=== PATIENT | female | born 1965 | race Caucasian/White ===

== ENCOUNTER 2016-12-04 21:30 | Emergency (ER) | payer OTHER ==
[~2016-12-04] VITALS: Ht 167.6 cm; Wt 54.4 kg
[~2016-12-04 21:30] MED LIST: EST.625T PO; IBP600T1 PO
[2016-12-04 21:47] LABS: BILIRUBIN,URINE NEGATIVE (NEGATIVE); KETONES,URINE NEGATIVE (NEGATIVE); LEUKOCYTE ESTERASE ,URINE 3+ (NEGATIVE); NITRITE,URINE POSITIVE (NEGATIVE); PH,URINE 7 (5-9); PROTEIN,URINE 2+ (NEGATIVE); UROBILINOGEN,URINE NORMAL (NORMAL)
[2016-12-04 21:58] LABS: SQUAMOUS EPITHELIAL CELL,UR 0-2 /HPF
[2016-12-04] MEDS ORDERED: cefTRIAXone INJECTION 1,000 MG in NS (IVPB) 50 ML IV ONE (22:45)
[2016-12-04 22:50] LABS: BASOPHILS # (AUTO) 0.1 10^3/uL (0.0-0.1); BASOPHILS % (AUTO) 1 % (0-10); EOSINOPHILS # (AUTO) 0.1 10^3/uL (0.0-0.3); EOSINOPHILS % (AUTO) 1 % (0-10); LYMPHOCYTES # (AUTO) 3.3 X 10^3 (1.0-4.0); LYMPHOCYTES % (AUTO) 32 % (12-44); MEAN CORPUSCULAR HEMOGLOBIN 31 PG (25-34); MEAN CORPUSCULAR HGB CONC 33 G/DL (32-36); MEAN CORPUSCULAR VOLUME 95 FL (80-99); MEAN PLATELET VOLUME 10.7 FL (7.4-10.4); MONOCYTES # (AUTO) 0.8 X 10^3 (0.0-1.0); MONOCYTES % (AUTO) 8 % (0-12); NEUTROPHILS # (AUTO) 6.1 X 10^3 (1.8-7.8); NEUTROPHILS % (AUTO) 58 % (42-75); PLATELET COUNT 223 10^3/uL (130-400); RED BLOOD COUNT 4.12 10^6/uL (4.35-5.85); RED CELL DISTRIBUTION WIDTH 12.5 % (10.0-14.5); WHITE BLOOD COUNT 10.4 10^3/uL (4.3-11.0)
[2016-12-04 23:08] LABS: ALANINE AMINOTRANSFERASE 14 U/L (0-55); ALBUMIN 3.9 G/DL (3.2-4.5); ANION GAP 11 MMOL/L (5-14); ASPARTATE AMINO TRANSFERASE 21 U/L (5-34); BILIRUBIN,TOTAL 0.2 MG/DL (0.1-1.0); BLOOD UREA NITROGEN 15 MG/DL (7-18); BUN/CREATININE RATIO 15; CALCIUM 9.5 MG/DL (8.5-10.1); CARBON DIOXIDE 25 MMOL/L (21-32); CHLORIDE 104 MMOL/L (98-107); CREATININE SERUM 0.97 MG/DL (0.60-1.30); GFR ESTIMATED > 60; GLUCOSE 96 MG/DL (70-105); POTASSIUM 3.8 MMOL/L (3.6-5.0); SODIUM 140 MMOL/L (135-145); TOTAL PROTEIN 7.2 G/DL (6.4-8.2)
[2016-12-05] MEDS ORDERED: PHEN-639 PO (00:48)
[2016-12-05] MEDS ORDERED: CEPH-507 PO (00:48)
--- NOTE | 2016-12-05 00:49 | ED GU-Female ---
General Chief Complaint: -Female Stated Complaint: BLOOD IN URINE/LOWER STOMACH PAIN Nursing Triage Note: PT TO ED 6 W/ C/O HEMATURIA, PAIN, BURNING ET URGENCY ONSET THIS AM, WORSE THROUGHOUT THE DAY. DOES REPORT SIMILAR COMPLAINT AFTER RUNNING THE [employer] HALF MARATHON ET WAS EVALUATED AT THAT TIME BUT DENIES BEING TREATED FOR UTI. NO OTHER C/O VOICED Nursing Sepsis Screen: No Definite Risk Source: patient Exam Limitations: no limitations History of Present Illness Time seen by provider: 21:34 Initial Comments This 51-year-old woman presents to the emergency room with complaints of suprapubic pain and gross hematuria. Symptoms started within the past 24 hours. She reports a lesser episode of hematuria about 3 weeks ago after running a marathon. She has had a couple episodes of microscopic hematuria in the past several months. She has been treated for urinary tract infection in the past although UAs were not strongly indicative of infection per her report. Patient denies any fever or other symptoms. She has a remote history of ovarian cancer. Dr. Bartlett is her primary care provider. Allergies and Home Medications Allergies Coded Allergies: No Known Drug Allergies (Unverified , 08/07/11) Home Medications Cephalexin 500 Mg Capsule, 500 MG PO QID, #40 Prescribed by: NIVIA MIGUEL on 12/05/16 0048 Estrogens,Conjugated 0.625 Mg Tablet, 1 TAB PO DAILY, #0 (Reported) Phenazopyridine HCl 100 Mg Tablet, 100 MG PO TID, #10 Prescribed by: NIVIA MIGUEL on 12/05/168 Constitutional: no symptoms reported EENTM: no symptoms reported Respiratory: no symptoms reported Cardiovascular: no symptoms reported Gastrointestinal: no symptoms reported Genitourinary: see HPI : No Musculoskeletal: no symptoms reported Skin: no symptoms reported Psychiatric/Neurological: No Symptoms Reported Endocrine: No Symptoms Reported Past Czjbazv-Fewgme-Esqcsh Hx Patient Social History Recent Foreign Travel: No Contact w/Someone Who Travel: No Recent Infectious Disease Expo: No Recent Hopitalizations: Yes Seasonal Allergies Seasonal Allergies: No Surgeries HX Surgeries: Yes (hysterectomy & sx for bowel obstruction) Surgeries: Abdominal, Hysterectomy Respiratory Hx Respiratory Disorders: No Cardiovascular Hx Cardiac Disorders: No Neurological Hx Neurological Disorders: No Reproductive System : No Hx Reproductive Disorders: Yes (ovarian ca & hysterectomy at 18 yrs old) Genitourinary Hx Genitourinary Disorders: Yes (hematuria) Gastrointestinal Hx Gastrointestinal Disorders: Yes Gastrointestinal Disorders: Obstructive Bowel, Diverticulosis Musculoskeletal Hx Musculoskeletal Disorders: No Endocrine Hx Endocrine Disorders: No HEENT HX ENT Disorders: No Cancer Hx Cancer: Yes Cancer: Ovarian Psychosocial Hx Psychiatric Problems: No Integumentary HX Skin/Integumentary Disorder: No Blood Transfusions Hx Blood Disorders: No Physical Exam Vital Signs Vital Sign - Last 12Hours 12/04/16 21:33 Temp 97.9 Pulse 63 Resp 16 B/P (MAP) 134/93 Pulse Ox 99 O2 Delivery Room Air Capillary Refill : Less Than 3 Seconds General Appearance: WD/WN, no apparent distress HEENT: PERRL/EOMI, normal ENT inspection, pharynx normal Neck: normal inspection Cardiovascular: regular rate, rhythm, no edema, no murmur Respiratory: lungs clear, normal breath sounds, no respiratory distress, no accessory muscle use Gastrointestinal: normal bowel sounds, soft, tenderness (suprapubic tenderness) Back: normal inspection, no CVA tenderness Extremities: normal inspection, no pedal edema Neurologic/Psychiatric: 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, no motor/sensory deficits, alert, normal mood/affect, oriented x 3 Skin: normal color, warm/dry Progress/Results/Core Measures Results/Orders Lab Results Laboratory Tests Test 12/04/16 21:38 12/04/16 22:43 Range/Units Urine Color OTHER H Urine Clarity SLIGHTLY CLOUDY Urine pH 7 5-9 Urine Specific [place] 1.010 L 1.016-1.022 Urine Protein 2+ H NEGATIVE Urine Glucose (UA) NEGATIVE NEGATIVE Urine Ketones NEGATIVE NEGATIVE Urine Nitrite POSITIVE H NEGATIVE Urine Bilirubin NEGATIVE NEGATIVE Urine Urobilinogen NORMAL NORMAL MG/DL Urine Leukocyte Esterase 3+ H NEGATIVE Urine RBC (Auto) 5+ H NEGATIVE Urine RBC TNTC H /HPF Urine WBC 10-25 H /HPF Urine Squamous Epithelial Cells 0-2 /HPF Urine Crystals NONE /LPF Urine Bacteria FEW H /HPF Urine Casts NONE /LPF Urine Mucus NEGATIVE /LPF Urine Culture Indicated YES White Blood Count 10.4 4.3-11.0 10^3/uL Red Blood Count 4.12 L 4.35-5.85 10^6/uL Hemoglobin 12.8 11.5-16.0 G/DL Hematocrit 39 35-52 % Mean Corpuscular Volume 95 80-99 FL Mean Corpuscular Hemoglobin 31 25-34 PG Mean Corpuscular Hemoglobin Concent 33 32-36 G/DL Red Cell Distribution Width 12.5 10.0-14.5 % Platelet Count 223 130-400 10^3/uL Mean Platelet Volume 10.7 H 7.4-10.4 FL Neutrophils (%) (Auto) 58 42-75 % Lymphocytes (%) (Auto) 32 12-44 % Monocytes (%) (Auto) 8 0-12 % Eosinophils (%) (Auto) 1 0-10 % Basophils (%) (Auto) 1 0-10 % Neutrophils # (Auto) 6.1 1.8-7.8 X 10^3 Lymphocytes # (Auto) 3.3 1.0-4.0 X 10^3 Monocytes # (Auto) 0.8 0.0-1.0 X 10^3 Eosinophils # (Auto) 0.1 0.0-0.3 10^3/uL Basophils # (Auto) 0.1 0.0-0.1 10^3/uL Sodium Level 140 135-145 MMOL/L Potassium Level 3.8 3.6-5.0 MMOL/L Chloride Level 104 98-107 MMOL/L Carbon Dioxide Level 25 21-32 MMOL/L Anion Gap 11 5-14 MMOL/L Blood Urea Nitrogen 15 7-18 MG/DL Creatinine 0.97 0.60-1.30 MG/DL Estimat Glomerular Filtration Rate > 60 BUN/Creatinine Ratio 15 Glucose Level 96 70-105 MG/DL Calcium Level 9.5 8.5-10.1 MG/DL Total Bilirubin 0.2 0.1-1.0 MG/DL Aspartate Amino Transf (AST/SGOT) 21 5-34 U/L Alanine Aminotransferase (ALT/SGPT) 14 0-55 U/L Alkaline Phosphatase 71 40-136 U/L Total Protein 7.2 6.4-8.2 G/DL Albumin 3.9 3.2-4.5 G/DL My Orders Orders - NIVIA MANTILLA MD Ua Culture If Indicated (12/04/16 21:33) Urine Culture (12/04/16 21:38) Cbc With Automated Diff (12/04/16 22:41) Comprehensive Metabolic Panel (12/04/16 22:41) Saline Lock/Iv-Start (12/04/16 22:41) Ceftriaxone Injection (Rocephin Injectio (12/04/16 22:45) Ct Abd/Pelvis Wo(Kidney Stone) (12/05/16 00:01) Phenazopyridine Tablet (Pyridium Tablet) (12/05/16 01:00) Medications Given in ED Current Medications Medications Dose Ordered Sig/Jose G Route Start Time Stop Time Status Last Admin Dose Admin Ceftriaxone Sodium 1000 mg/ Sodium Chloride 50 ml @ 100 mls/hr ONCE ONCE IV 12/04/16 22:45 12/04/16 23:14 DC 12/04/16 22:59 100 MLS/HR Phenazopyridine HCl 100 mg ONCE ONCE PO 12/05/16 01:00 12/05/16 01:00 DC 12/05/16 00:57 100 MG Vital Signs/I&O Vital Sign - Last 12Hours 12/04/16 12/05/16 21:33 01:04 Temp 97.9 98.1 Pulse 63 60 Resp 16 16 B/P (MAP) 134/93 Pulse Ox 99 100 O2 Delivery Room Air Intake and Output 12/05/16 00:00 Intake Total 50 ml Balance 50 ml Blood Pressure Mean: 107 Progress Note : Progress Note Patient was found to have significant hematuria and evidence of urinary tract infection. Rocephin was administered. In the context of recurrent episodes of hematuria, CT imaging was felt appropriate. Patient has a contrast dye allergy. Therefore, images were obtained without contrast. Case was reviewed with Dr. Corado. He recommends cystoscopy for direct visualization to rule out bladder//ureteral neoplasm. She is to contact his office tomorrow. Diagnostic Imaging Diagonstic Imaging: CT Plain Films/CT/US/NM/MRI: abdomen, pelvis Comments CT abdomen and pelvis viewed by me and Stat rad report reviewed. The right distal ureter has an area of increased density concerning for a lesion and/or hemorrhage or clot. There is associated marked hydronephrosis. No ureteral calculi are identified. Small left nephrolithiasis. Departure Impression Impression: Primary Impression: Hematuria Additional Impressions: Ureteral obstruction, right Urinary tract infection Qualified Codes: N39.0 - Urinary tract infection, site not specified; R31.9 - Hematuria, unspecified Disposition: 01 HOME, SELF-CARE Condition: Stable Departure-Patient Inst. Decision time for Depature: 00:45 Referrals: WENDY BARTLETT MD (PCP/Family) Primary Care Physician NOAH CORADO MD Patient Instructions: Blood in the Urine (Hematuria) in Adults, Urinary Tract Infections in Adults Add. Discharge Instructions: Contact Dr. Corado (or urologist of your choice) and your primary care provider to get follow-up appointments as soon as possible. Return to the emergency room if symptoms worsen. Complete your antibiotics as prescribed. Avoid aspirin or NSAID medications such as ibuprofen or naproxen as they may worsen bleeding. You may take Tylenol (acetaminophen) and perineum as prescribed for pain. Follow-up on your urine culture results in 48 hours to ensure the antibiotic you're on is appropriate. All discharge instructions reviewed with patient and/or family. Voiced understanding. Scripts Phenazopyridine HCl (Pyridium) 100 Mg Tablet 100 MG PO TID, #10 TAB Prov: NIVIA MANTILLA MD 12/05/16 Cephalexin (Keflex) 500 Mg Capsule 500 MG PO QID, #40 CAP Prov: NIVIA MANTILLA MD 12/05/16 Copy Copies To 1: WENDY BARTLETT MD Copies To 2: NOAH CORADO MD, JOSHUA T MD Dec 05, 2016 00:49
[2016-12-05] MEDS ORDERED: PHENAZOPYRIDINE 100 MG (PYRIDIUM) TABLET PO ONE (01:00)
[2016-12-05 01:04] VITALS: BP 132/81
--- NOTE | 2016-12-05 07:10 | Diagnostic Imaging Report ---
PROCEDURE: CT urinary tract, rule out kidney stone. TECHNIQUE: Multiple contiguous axial images were obtained through the abdomen and pelvis without the use of intravenous contrast. INDICATION: Gross hematuria. There are no previous CT examinations available for comparison. There is marked dilatation of the right renal pelvis and the right ureter. There is no sign of an obstructive calculus in the distal right ureter. However there does seem to be dense material within the distal right ureter. This could be secondary to the presence of hemorrhage/hematoma formation and this may alone account for the dilated appearance of the right collecting system. The possibility that there is an underlying neoplastic mass in this area should still be considered. There are a few minute nonobstructive calculi within the left kidney. There is no sign of obstruction of left collecting system. There is no evidence for a solid mass involving either kidney. The urinary bladder is grossly unremarkable. No other acute abnormality of the abdomen or pelvis is identified. There is no pelvic mass or free fluid collection evident. The uterus is surgically absent. There may be a few diverticula in the sigmoid colon but there is no sign of acute diverticulitis. The appendix was not well-visualized but there are no indirect signs of acute appendicitis. The liver, spleen, pancreas, adrenals, gallbladder, aorta and inferior vena cava are unremarkable for an acute abnormality. The stomach is filled with fluid and particulate matter and difficult to assess. The lung bases are clear. The bone windows show no sign of a fracture or of a destructive lesion. IMPRESSION: 1. There is obstruction of the right collecting system but there is no sign of an obstructive calculus. However the area of increased density within the distal ureter may be secondary to hemorrhage/hematoma formation or even to an underlying neoplastic process. Cystoscopy would be recommended for further evaluation. 2. There are nonobstructive calculi in the left kidney but there is no sign of obstruction of left collecting system. 3. There is no acute abnormality of the abdomen or pelvis noted otherwise. Dictated by: Dictated on workstation # [id number]
[2016-12-06] MEDS ORDERED: HYDR-3874 PO (12:27)
[2016-12-06] MEDS ORDERED: NITR-65 PO (12:27)
[2016-12-06] MEDS ORDERED: HYOS0.1281 PO (12:27)
== END 2016-12-05 01:00 | disposition home or self-care (01) ==
LOC: EDUNIT# 21:30 → ER 21:32
DX: R31.9 Hematuria, unspecified (principal); N39.0 Urinary tract infection, site not specified; N13.5 Crossing vessel and stricture of ureter without hydronephrosis; Z90.710 Acquired absence of both cervix and uterus; Z87.19 Personal history of other diseases of the digestive system; Z85.43 Personal history of malignant neoplasm of ovary
CPT/HCPCS: 36415; 74176; 80053; 81000; 85025; 87088; 87186

== ENCOUNTER 2016-12-06 06:32 | Day surgery (SDC) | payer OTHER ==
[~2016-12-06] VITALS: Ht 167.6 cm; Wt 54.7 kg
[~2016-12-06 06:32] MED LIST changes: +CEPH-507 PO; +PHEN-639 PO
[2016-12-06 07:00] VITALS: BP 136/86
--- NOTE | 2016-12-06 07:18 | Progress Note-Pre Operative ---
Pre-Operative Progress Note H&P Reviewed The H&P was reviewed, patient examined and no changes noted. Date Seen by Provider: Dec 06, 2016 Time Seen by Provider: 07:17 Date H&P Reviewed: Dec 06, 2016 Time H&P Reviewed: 07:17 Pre-Operative Diagnosis: GROSS HEMATURIA, RT URETERAL OBSTRUCTION, AND MASS DISTAL RT URETER NOAH CORADO MD Dec 06, 2016 7:18 am
[2016-12-06] MEDS ORDERED: cefTRIAXone 1 GM/NS 50 ML IVPB IV ONE ×2 (07:45)
[2016-12-06] MEDS: LACTATED RINGERS 1,000 ML IV PRN ×2 (08:10→09:55)
[2016-12-06] MEDS ORDERED: SEVOFLURANE (ULTANE) 15 ML INHAL SOLN ONE (09:08)
[2016-12-06] MEDS ORDERED: LACTATED RINGERS 1,000 ML IV ONE ×2 (09:08→10:06)
[2016-12-06] MEDS ORDERED: proPOfol 200 MG/20 ML (DIPRIVAN) VIAL IV ONE (09:08)
[2016-12-06] MEDS ORDERED: DEXAMETHASONE PF 10 MG/ML (DECADRON) VIAL ONE (09:08)
[2016-12-06] MEDS ORDERED: MIDAZOLAM 2 MG/2 ML (VERSED) VIAL ONE (09:08)
[2016-12-06] MEDS ORDERED: fentaNYL INJECTION 100 MCG/2 ML AMP ONE (09:08)
[2016-12-06] MEDS ORDERED: ROCURONIUM 50 MG/5 ML (ZEMURON) VIAL IV ONE (09:08)
[2016-12-06] MEDS ORDERED: ONDANSETRON 4 MG/2 ML (SDV) Z0FRAN ONE (09:08)
[2016-12-06] MEDS ORDERED: LIDOCAINE PF 2% 5 ML (XYLOCAINE) VIAL ONE (09:08)
[2016-12-06] MEDS ORDERED: NEOSTIGMINE (BLOXIVERZ ) 1 MG/1ML 10 ML VIAL ONE (09:48)
[2016-12-06] MEDS ORDERED: GLYCOPYRROLATE 0.2 MG/ML (ROBINUL) 2 ML VIAL ONE (09:48)
--- NOTE | 2016-12-06 10:23 | Progress Note-Post Operative ---
Post-Operative Progess Note Surgeon (s)/Grade And Center Marker (s) Surgeon NOAH CORADO MD Grade And Center Marker: N/A Pre-Operative Diagnosis GROSS HEMATURIA, RT URETERAL OBSTRUCTION, AND MASS DISTAL RT URETER Post-Operative Diagnosis SAME, DUS, CYSTITIS Procedure & Operative Findings Date of Procedure 12/06/16 Procedure Performed/Findings CYSTO, RT URETEROSCOPY, CYTOLOGY, BIOPSY RT DISTAL URETERAL MASS, AND UD FINDINGS: DIFFUSE CYSTITIS, DUS, RT DISTAL URETERAL MASS Anesthesia Type GENERAL Estimated Blood Loss Estimated blood loss (mL): NEGLIGIBLE Specimens/Packing Specimens Removed 1. URINE CYTOLOGY RT URETER 2. 4 BIOPSIES RT DISTAL URETER NOAH CORADO MD Dec 06, 2016 10:23 am
--- NOTE | 2016-12-06 10:25 | Discharge Inst-Urology ---
Discharge Inst-Urology Discharge Medications New, Converted, or Re-newed RX: RX on Chart Patient Instructions/Follow Up Plan Please make appointment to been seen in office in 2 weeks. Stop Keflex Increase oral fluids for 48 hours and then as needed. Diet and Activity as tolerated. If questions or concerns contact your physician Or seek help at emergency department. NOAH CORADO MD Dec 06, 2016 10:25 am
[2016-12-06] MEDS ORDERED: ONDANSETRON 4 MG/2 ML (SDV) Z0FRAN IVP PRN (10:30)
[2016-12-06] MEDS: morphine INJ 10 MG/ML 1ML (SYR OR VIAL) IVP PRN ×2 (10:35→10:42)
[2016-12-06 11:05] VITALS: BP 149/92
[2016-12-06] MEDS ORDERED: HYDROcodone/APAP 5 MG/325 MG (LORTAB) TAB PO PRN (11:30)
[2016-12-06 11:35] VITALS: BP 140/85
[2016-12-06 12:15] VITALS: BP 124/76
--- NOTE | 2016-12-06 12:21 | OPERATIVE REPORT ---
DATE OF SERVICE: 12/06/2016 PREOPERATIVE DIAGNOSES: Gross hematuria, right urethral obstruction and mass in the distal right ureter. POSTOPERATIVE DIAGNOSES: Gross hematuria, right urethral obstruction, mass in the distal right ureter, distal urethral stenosis sand cystitis. PROCEDURES PERFORMED: Cystoscopy, right ureteroscopy, cytology, biopsy of right distal urethral mass and urethral dilatation. SURGEON: Casimiro Corado MD ANESTHESIA: General. COMPLICATIONS: None. PROCEDURE IN DETAIL: Under satisfactory general anesthesia, the patient in the lithotomy position, genitalia were prepped and draped in the usual sterile fashion. Urethral stenosis was noted and dilated from 20-Maltese to 26-Maltese easily. Cystoscope was introduced in the bladder. Examination of the bladder with both lenses revealed diffuse cystitis. No foreign body, bladder tumor or stone visualized. Clear efflux on the left side and sluggish bloody efflux on the right side. Using the foreoblique lens, I dilated the right ureteral orifice and intramural portion to accommodate a 6.9-Maltese semi-rigid ureteroscope. I visualized a papillary mass lesion starting in the intramural portion of the ureter and proximally for at least 1 cm fluoroscopically at the level of the ischial spine. I went ahead and first obtained cytology and sent the fluid to pathology. Then, I went ahead and obtained 4 biopsies, easily obtained, superficially looking and papillary type and sent them to pathology. I did not want to perform any retrograde, both because the patient says she has allergy to IVP contrast and also not to spread any tumor proximally. There was mild ooze from the right ureter, the bladder was evacuated and the cystoscope was removed. The patient tolerated the procedure and anesthesia well and was sent to recovery room in stable condition. PLAN: Will refer her to [facility]. My impression would be she would need a right distal ureterectomy and reimplantation possibly tailoring, of course pending the pathology and cytology reports, unless it can be done endoscopically. Will leave that up to the [facility] specialists. This was fully explained to the and the father and later on to the patient. Job ID: [id number] DocumentID: [id number] Dictated Date: 12/06/2016 10:29:11 Shoe Caser Date: 12/06/2016 12:20:44 Dictated By: CASIMIRO CORADO MD [facility], [place]
[2016-12-06] MEDS ORDERED: NITR-65 PO (12:27)
[2016-12-06] MEDS ORDERED: HYDR-3874 PO (12:27)
[2016-12-06] MEDS ORDERED: HYOS0.1281 PO (12:27)
[2016-12-06 12:40] VITALS: BP 124/76
== END 2016-12-06 12:40 | disposition home or self-care (01) ==
LOC: SDC 06:32
PROVIDERS: ATTEND Urology
DX: C67.9 Malignant neoplasm of bladder, unspecified (principal); N35.9 Urethral stricture, unspecified; R31.0 Gross hematuria; N30.91 Cystitis, unspecified with hematuria; Z11.2 Encounter for screening for other bacterial diseases
CPT/HCPCS: 87081

== ENCOUNTER → 2017-02-07 | Outpatient (CLI) | payer OTHER ==
[~2017-02-07] MED LIST changes: +HYDR-3874 PO; +HYOS0.1281 PO; +IOHEXOL 350 MG/ML 100 ML (OMNIPAQUE 350) VIAL IV ONE; +NITR-65 PO
--- NOTE | 2017-02-07 11:39 | Diagnostic Imaging Report ---
PROCEDURE: CT pelvis without intravenous and with intravesical contrast. TECHNIQUE: Multiple contiguous axial images were obtained through the pelvis without the use of intravenous and with intravesical contrast administered via a Rothman catheter. Sagittal and coronal reformations were performed. INDICATION: Postoperative evaluation involving resection of the distal right ureter and probably portion of the urinary bladder. FINDINGS: There is a Rothman catheter in the urinary bladder which is minimally distended prior to contrast administration. There is normal distention of the urinary bladder which appears to be mostly in an intraperitoneal location at this time and from the anterior abdominal wall except for the most inferior portion. There is slight irregularity along the anterior right side aspect of the bladder, probably from postsurgical changes with no definite mass. No evidence of extravasation of contrast outside the bladder. This is similar on post evacuation scan as well. There is no reflux into the left ureter. There is a small amount of free fluid in the pelvis seen. No significantly enlarged lymph nodes in the pelvis are identified. There is mild degenerative sclerotic change at the SI joints seen. Also, mild degenerative sclerotic changes at the lower facet joints are noted. IMPRESSION: Irregularity along the anterior right side aspect of the urinary bladder, probably related to postoperative changes with no definite mass identified. No extravasation of contrast outside the bladder to suggest a tear. Dictated by: Dictated on workstation # [id number]
== END ==
LOC: RAD 08:57
PROVIDERS: ATTEND Urology
DX: Z93.50 Unspecified cystostomy status (principal)
CPT/HCPCS: 72192

== ENCOUNTER → 2017-03-08 | Outpatient (CLI) | payer OTHER ==
[~2017-03-08] MED LIST changes: -IOHEXOL 350 MG/ML 100 ML (OMNIPAQUE 350) VIAL IV ONE
--- NOTE | 2017-03-09 09:31 | Diagnostic Imaging Report ---
Bilateral screening mammogram. This study was compared to prior exam of 02/28/2016; 02/24/2015; and 02/23/2014. At this time there are no current complaints. The current study was also evaluated with a Computer Aided Detection (CAD) system. FINDINGS: The fibroglandular tissue in both breasts is dense. This does limit the sensitivity of this exam. Overall, there does not appear to have been any significant change when compared to the prior study. No primary or secondary sign of malignancy is noted. IMPRESSION: There is no radiographic evidence for malignancy. ACR BI-RADS Category 1: Negative. Result letter will be mailed to the patient. Note: At least 10% of breast cancer is not imaged by mammography. Dictated by: Dictated on workstation # [id number]
== END ==
LOC: RAD 07:19
PROVIDERS: ATTEND Nurse Practitioner Family
DX: Z12.31 Encounter for screening mammogram for malignant neoplasm of breast (principal)
CPT/HCPCS: 77067

== ENCOUNTER → 2018-03-26 | Outpatient (CLI) | payer BC, OTHER ==
[~2018-03-26] MED LIST changes: +HYDR-3870 PO; -HYDR-3874 PO
--- NOTE | 2018-03-26 13:04 | Diagnostic Imaging Report ---
INDICATION: Screening. TECHNIQUE: The current study was also evaluated with a Computer Aided Detection (CAD) system. 3D tomosynthesis was also performed and reviewed. COMPARISON: 03/08/2017 back through 02/19/2012. FINDINGS: The fibroglandular tissue is heterogeneously dense bilaterally. There are a few benign type calcifications. There is no dominant mass, spiculated lesion, or suspicious calcification identified. The skin, nipples, and axillae are unremarkable. IMPRESSION: Benign findings. ACR BI-RADS Category 2: Benign findings. Result letter will be mailed to the patient. Note: At least 10% of breast cancer is not imaged by mammography. Dictated by: Dictated on workstation # [id number]
== END ==
LOC: RAD 07:17
PROVIDERS: ATTEND Nurse Practitioner Family
DX: Z12.31 Encounter for screening mammogram for malignant neoplasm of breast (principal)
CPT/HCPCS: 77067

== ENCOUNTER → 2019-03-28 | Outpatient (CLI) | payer BC ==
--- NOTE | 2019-03-28 09:16 | Diagnostic Imaging Report ---
INDICATION: Routine screening. COMPARISON: 03/26/2018 and 03/08/2017. TECHNIQUE: 2D and 3D bilateral screening mammography was performed with CAD. FINDINGS: Both breasts remain heterogeneously dense, limiting the sensitivity of mammography. The parenchymal pattern is stable. No mass or malignant appearing microcalcifications are seen. The axillae are unremarkable. IMPRESSION: No mammographic features suspicious for malignancy are identified. ACR BI-RADS Category 1: Negative. Result letter will be mailed to the patient. Note: At least 10% of breast cancer is not imaged by mammography. Dictated by: Dictated on workstation # [id number]
== END ==
LOC: RAD 07:19
PROVIDERS: ATTEND Nurse Practitioner Family
DX: Z12.31 Encounter for screening mammogram for malignant neoplasm of breast (principal)
CPT/HCPCS: 77067

== ENCOUNTER 2020-03-09 05:52 | Outpatient (CLI) | payer BC ==
[~2020-03-09] VITALS: Ht 167 cm; Wt 53.6 kg
[2020-03-09] MEDS ORDERED: ESTR0.62 PO (10:40)
== END 2020-03-09 10:44 ==
LOC: PREOP 05:52
PROVIDERS: ATTEND Internal Medicine
DX: Z01.818 Encounter for other preprocedural examination (principal)

== ENCOUNTER 2020-03-12 07:04 | Day surgery (SDC) | payer BC ==
--- NOTE | 2020-03-05 07:18 | HISTORY AND PHYSICAL ---
DATE OF SERVICE: COLONOSCOPY HISTORY AND PHYSICAL HISTORY OF PRESENT ILLNESS: The patient is a 54-year-old white female referred for screening colonoscopy. She is deemed to be of higher than average risk as she has a past history of ovarian cancer. 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 At that time, she underwent oophorectomy and total abdominal hysterectomy followed by radiation therapy. 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 She apparently had significant obstructive uropathy and she ended up undergoing ureterectomy and right nephrectomy. I performed colonoscopy on her in 2009, at which time she had two hyperplastic polyps removed. She had some tethering of the colon and secondary to this, that was not an easy examination. For this reason, advised Diprivan based anesthesia. She reports no bright red blood per rectum, melena or bowel habit change. She has had no abdominal distention or pain. Energy level has been good. She runs on a regular basis without symptoms. PAST SURGICAL HISTORY: As noted in the HPI. SOCIAL HISTORY: She has no history of past smoking or significant alcohol intake. She is employed. REVIEW OF SYSTEMS: CONSTITUTIONAL: She has had no change in weight, night sweats, chills or fever. CARDIOVASCULAR: She denies dyspnea on exertion, orthopnea, PND, pedal edema, chest pain, syncope or presyncope. PULMONARY: She denies cough, wheezing or shortness of breath. PHYSICAL EXAMINATION: GENERAL: Reveals a white female, fit appearing, in no acute distress. VITAL SIGNS: Blood pressure 120/80, weight 118 and BMI 21. HEENT: Unremarkable. CHEST: Clear to auscultation. CARDIOVASCULAR: Reveals a regular rate and rhythm without murmur, S3 or S4. ABDOMEN: Soft, supple without mass, organomegaly or tenderness. No bruits noted. EXTREMITIES: Reveal no cyanosis, clubbing or edema. 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 Prep instructions with the Suprep kit were given and the questions were answered. We will be doing the patient under Diprivan based anesthesia due to previous examination suggesting adhesions. I thank you for the referral of this pleasant lady. Job ID: [id number] DocumentID: [id number] Dictated Date: 03/03/2020 14:57:28 Residence Life Coordinator Date: 03/03/2020 15:10:30 Dictated By: ANDERS CALI MD
[~2020-03-12] VITALS: Ht 167 cm; Wt 53.6 kg
[~2020-03-12 07:04] MED LIST changes: +ESTR0.62 PO
[2020-03-12] MEDS ORDERED: LACTATED RINGERS 1,000 ML IV STA (07:15)
[2020-03-12] MEDS ORDERED: LIDOCAINE JELLY 2% 6 ML SYRINGE MM PRN (07:15)
[2020-03-12] MEDS ORDERED: PROPOFOL INJECTION 50 ML IV ONE (07:18)
[2020-03-12] MEDS ORDERED: MIDAZOLAM 2 MG/2 ML (VERSED) VIAL ONE (07:18)
[2020-03-12] MEDS ORDERED: LACTATED RINGERS 1,000 ML IV ONE (07:22)
[2020-03-12 07:29] VITALS: BP 109/74
[2020-03-12] MEDS ORDERED: LACTATED RINGERS 1,000 ML IV SCH (07:45)
[2020-03-12 08:35] VITALS: BP 99/58
--- NOTE | 2020-03-12 08:37 | Pre-Op Note & Conscious Sedat ---
Pre-Operative Progress Note H&P Reviewed The H&P was reviewed, patient examined and no changes noted. Date H&P Reviewed: Mar 12, 2020 Time H&P Reviewed: 07:30 Conscious Sedation Pre-Proced ASA Score 2 For ASA 3 and 4: Consider anesthesia and medical clearance. Also, for patients with a history of failed moderate sedation consider anesthesia. Airway Lungs Heart ASA score ASA 1: a normal healthy patient ASA 2: a patient with a mild systemic disease (mid diabetes, controlled hypertension, obesity ASA 3: a patient with a severe systemic disease that limits activity (angina, COPD, prior Myocardial infarction) ASA 4: a patient with an incapacitating disease that is a constant threat to life (CHF, renal failure) ASA 5: a moribund patient not expected to survive 24 hrs. (ruptured aneurysm) ASA 6: a declared brain- patient whose organs are being harvested. For emergent operations, add the letter E after the classification Mallampati Classification Grade 2 Sedation Plan Analgesia, Amnesia, Plan communicated to team members, Discussed options with patient/fam, Discussed risks with patient/fam The patient is an appropriate candidate to undergo the planned procedure, sedation, and anesthesia. The patient immediately re-assessed prior to indication. ANDERS CALI MD Mar 12, 2020 08:37
[2020-03-12 08:40] VITALS: BP 99/58
[2020-03-12 09:00] VITALS: BP 93/63
--- NOTE | 2020-03-12 09:53 | Anesthesia-General Post-Op ---
MAC Patient Condition Mental Status/LOC: Same as Preop Cardiovascular: Satisfactory Nausea/Vomiting: Absent Respiratory: Satisfactory Pain: Controlled Complications: Absent Post Op Complications Complications None Follow Up Care/Instructions Patient Instructions None needed. Anesthesiology Discharge Order Discharge Order Patient is doing well, no complaints, stable vital signs, no apparent adverse anesthesia problems. No complications reported per nursing. DEL MIRANDA CRNA Mar 12, 2020 09:53
[2020-03-12 10:00] VITALS: BP 93/63
--- NOTE | 2020-03-12 20:19 | OPERATIVE REPORT ---
DATE OF SERVICE: COLONOSCOPY SUMMARY INDICATION FOR PROCEDURE: Screening colonoscopy, higher risk due to family history for colon cancer. DESCRIPTION OF PROCEDURE: The patient was placed in the left lateral decubitus position. Prior to any colonoscopy, digital rectal evaluation was performed. Anal sphincter tone was normal and the perianal reflexes intact. The colonoscope was then inserted into the rectum and under direct visualization advanced to cecum. The cecum was identified by identification of ileocecal valve and cecal strap. Photographic documentation was obtained. Careful inspection was made as colonoscope withdrawn. Quality of prep was good. Procedure was done under Diprivan based anesthesia. FINDINGS: There was no evidence for internal or external hemorrhoids and the rectum was unremarkable. One moderate size sigmoid diverticulum was present with some narrowing of the sigmoid colon, likely due to extrinsic adhesions and not likely related to diverticular disease. There was no evidence for acute diverticulitis and the sigmoid colon was otherwise unremarkable. No evidence for stricturing was noted. The descending colon and splenic flexure were unremarkable. Present in the proximal transverse colon was diminutive 3 mm sessile polyp. It was biopsied and ablated and submitted for histopathology after photographing. The hepatic flexure, ascending colon and cecum were unremarkable. ASSESSMENT: One diminutive polyp was removed from the proximal transverse colon. As long as there are no surprise on histopathology reporting, we will advocate repeat surveillance colonoscopy in 5 years. Again noted findings compatible with extrinsic adhesions involving the sigmoid colon with some narrowing, but without obstruction and one moderate sized sigmoid diverticulum was noted without evidence for diverticulitis. Thank you for the referral of this pleasant lady. Job ID: [id number] DocumentID: [id number] Dictated Date: 03/12/2020 10:47:49 Firmware Test Engineer Date: 03/12/2020 20:18:54 Dictated By: ANDERS CALI MD [facility]
== END 2020-03-12 10:00 | disposition home or self-care (01) ==
LOC: ENDO 07:04
PROVIDERS: ATTEND Internal Medicine
DX: Z12.11 Encounter for screening for malignant neoplasm of colon (principal); K63.5 Polyp of colon; K57.30 Diverticulosis of large intestine without perforation or abscess without bleeding; G43.909 Migraine, unspecified, not intractable, without status migrainosus; Z79.899 Other long term (current) drug therapy; Z91.041 Radiographic dye allergy status; Z80.0 Family history of malignant neoplasm of digestive organs
CPT/HCPCS: 88305

== ENCOUNTER → 2020-03-29 | Outpatient (CLI) | payer BC ==
--- NOTE | 2020-03-29 19:12 | Diagnostic Imaging Report ---
EXAM: Digital mammogram, bilateral screening. COMPARISONS: This study was compared to the prior exams of 03/28/2019, 03/26/2018, and 03/08/2017. There are no current complaints. 3d digital tomography Bilateral History: Routine screening Technique: Bilateral 3d digital tomographic views were obtained with [employer] and reviewed on a [employer] workstation. In addition, CAD - computer aided detection was utilized. Comparison: None. Findings: Breast Tissue Density A : The breast tissue is composed of predominantly fatty tissue. There are no suspicious masses, microcalcifications or areas of architectural distortion. Impression: No suspicious findings. BI-RADS Category 1: Negative. Normal interval followup. The patient will receive a letter with the results in the mail. A mammogram does not have 100% sensitivity and therefore a negative imaging study should not delay further work up of a suspicious abnormality. Patient information is entered into the [facility] reminder system using [employer] with a target due date for the next screening mammogram. The patient will receive a reminder. "Our facility is accredited by the [employer] Mammography Program." ACR BI-RADS Category 1: Negative. Result letter will be mailed to the patient. Note: At least 10% of breast cancer is not imaged by mammography. Dictated on workstation # [id number]
== END ==
LOC: RAD 07:15
PROVIDERS: ATTEND Family Medicine
DX: Z12.31 Encounter for screening mammogram for malignant neoplasm of breast (principal)
CPT/HCPCS: 77063; 77067

== ENCOUNTER → 2021-04-08 | Outpatient (CLI) | payer BC ==
--- NOTE | 2021-04-11 11:30 | Diagnostic Imaging Report ---
INDICATION: Routine screening. Comparison is made with prior mammogram from 03/29/2020 and 03/28/2019. 2-D and 3-D bilateral screening mammography was performed with CAD. Both breasts are heterogeneously dense, limiting the sensitivity of mammography. The parenchymal pattern is stable. No mass or malignant-appearing microcalcifications are seen. Axillae are unremarkable. IMPRESSION: BI-RADS Category 1 No mammographic features suspicious for malignancy are identified. ACR BI-RADS Category 1: Negative. Result letter will be mailed to the patient. Note: At least 10% of breast cancer is not imaged by mammography. Dictated by: Dictated on workstation # [id number]
== END ==
LOC: RAD 04-04 07:30
PROVIDERS: ATTEND Family Medicine
DX: Z12.31 Encounter for screening mammogram for malignant neoplasm of breast (principal)
CPT/HCPCS: 77063; 77067

== ENCOUNTER → 2021-11-01 | Outpatient (CLI) | payer BC ==
[~2021-11-01] MED LIST changes: +CATHETER FLUSH 10 ML SYR IV PRN; +HOLD METFORMIN - RECEIVED CONTRAST 20 ML VIAL IV SCH; +IOHEXOL 350 MG/ML 100 ML (OMNIPAQUE 350) VIAL IV ONE; +NS 100 ML (IVPB) BAG IV ONE
[2021-11-01 08:01] LABS: ALBUMIN 4.1 GM/DL (3.2-4.5); POTASSIUM 4.7 MMOL/L (3.6-5.0)
[2021-11-01 08:03] LABS: CALCIUM 9.2 MG/DL (8.5-10.1)
[2021-11-01 08:04] LABS: TOTAL PROTEIN 7.1 GM/DL (6.4-8.2)
[2021-11-01 08:06] LABS: BILIRUBIN,TOTAL 0.5 MG/DL (0.1-1.0)
[2021-11-01 08:07] LABS: CREATININE SERUM 1.05 MG/DL (0.60-1.30)
--- NOTE | 2021-11-01 09:21 | Diagnostic Imaging Report ---
PROCEDURE: CT abdomen and pelvis with contrast. TECHNIQUE: Multiple contiguous axial images were obtained through the abdomen and pelvis after administration of intravenous contrast. Auto Exposure Controls were utilized during the CT exam to meet ALARA standards for radiation dose reduction. All CT scans use one or more of the following dose optimizing techniques: automated exposure control, MA and/or KvP adjustment based on patient size and exam type or iterative reconstruction. INDICATION: Bladder cancer COMPARISON: 02/07/2017 and 12/05/2016 FINDINGS: The visualized lung bases are clear. Innumerable similar-appearing round and ovoid hypodensities are again identified scattered throughout the liver. These appear similar to prior imaging. The spleen is unremarkable. The adrenal glands are unremarkable. The pancreas is unremarkable. Punctate 2 mm nonobstructing calculus within the inferior pole of the left kidney. Otherwise, the left kidney is unremarkable. Right nephrectomy. No abnormal soft tissue mass within the right renal fossa. Mild vascular calcifications without aneurysmal dilatation of the abdominal aorta. The urinary bladder is predominantly decompressed, therefore not well evaluated. The uterus is not visualized, likely surgically absent. Mild colonic diverticulosis without CT evidence of diverticulitis. No bowel obstruction or pneumatosis. No significant adenopathy, free air, or free fluid within the abdomen or pelvis. No acute osseous abnormality. IMPRESSION: Interval right nephrectomy without abnormal soft tissue mass within the right renal fossa. The urinary bladder is decompressed, therefore not well evaluated. Innumerable hepatic cysts again identified. Punctate nonobstructing left renal calculus. Dictated by: Dictated on workstation # [id number]
== END ==
LOC: RAD 10-17 08:45
PROVIDERS: ATTEND Urology
DX: C67.8 Malignant neoplasm of overlapping sites of bladder (principal); N20.0 Calculus of kidney; K76.89 Other specified diseases of liver; Z90.5 Acquired absence of kidney
CPT/HCPCS: 36415; 74177; 80053

== ENCOUNTER 2022-03-22 16:21 | Outpatient (RCR) | payer BC ==
[~2022-03-22 16:21] MED LIST changes: -CATHETER FLUSH 10 ML SYR IV PRN; -HOLD METFORMIN - RECEIVED CONTRAST 20 ML VIAL IV SCH; -IOHEXOL 350 MG/ML 100 ML (OMNIPAQUE 350) VIAL IV ONE; -NS 100 ML (IVPB) BAG IV ONE
== END 2022-03-31 | disposition home or self-care (01) ==
PROVIDERS: ATTEND Urology
DX: R10.2 Pelvic and perineal pain (principal); R39.15 Urgency of urination

== ENCOUNTER 2022-04-03 16:20 | Outpatient (RCR) | payer BC | END 2022-04-03 16:49 | disposition home or self-care (01) | PROVIDERS: ATTEND Urology | DX: R10.2 Pelvic and perineal pain (principal); R39.15 Urgency of urination ==

== ENCOUNTER → 2022-04-10 | Outpatient (CLI) | payer BC ==
--- NOTE | 2022-04-10 10:12 | Diagnostic Imaging Report ---
INDICATION: Routine screening. COMPARISON: 04/08/2021 and 03/29/2020. TECHNIQUE: 2D and 3D bilateral screening mammography was performed with CAD. FINDINGS: Both breasts are heterogeneously dense, limiting the sensitivity of mammography. No mass or malignant-appearing microcalcifications are seen. The axillae are unremarkable. IMPRESSION: No mammographic features suspicious for malignancy are identified. ACR BI-RADS Category 1: Negative. Result letter will be mailed to the patient. Note: At least 10% of breast cancer is not imaged by mammography. Dictated by: Dictated on workstation # [id number]
== END ==
LOC: RAD 07:27
PROVIDERS: ATTEND Family Medicine
DX: Z12.31 Encounter for screening mammogram for malignant neoplasm of breast (principal)
CPT/HCPCS: 77063; 77067

== ENCOUNTER → 2023-04-11 | Outpatient (CLI) | payer MEDICARE, OTHER ==
--- NOTE | 2023-04-11 12:03 | Diagnostic Imaging Report ---
INDICATION: Screening. EXAMINATION: Bilateral digital 2D and 3D screening with CAD. COMPARISON: April 2022, April 2021, and March 2020. BREAST DENSITY: 4. FINDINGS: No breast mass, spiculated lesion, architectural distortion, suspicious calcifications, or changes to suggest malignancy. IMPRESSION: Negative. ACR BI-RADS Category 1: Negative. Result letter will be mailed to the patient. Note: At least 10% of breast cancer is not imaged by mammography. Dictated by: Dictated on workstation # [id number]
== END ==
LOC: RAD 07:16
PROVIDERS: ATTEND Family Medicine
DX: Z12.31 Encounter for screening mammogram for malignant neoplasm of breast (principal)
CPT/HCPCS: 77063; 77067